=== PATIENT | female | born 1950 | race Hispanic/Latino ===

== ENCOUNTER 2017-12-27 19:30 | Emergency (ER) | payer MEDICARE ==
[~2017-12-27] VITALS: Ht 162.6 cm; Wt 92.0 kg
[~2017-12-27 19:30] MED LIST: DILTIAZEM120 MG PO; LEVOTHYROXIN125 MCG PO; LOSARTAN POT50 MG PO; TAM75CAP PO
[2017-12-27 20:19] LABS: URINE BILIRUBIN - DIPSTICK NEGATIVE (NEGATIVE); URINE BLOOD DIPSTICK SMALL (NEGATIVE); URINE COLOR YELLOW; URINE GLUCOSE - DIPSTICK NEGATIVE (NEGATIVE); URINE KETONE NEGATIVE (NEGATIVE); URINE LEUK ESTERASE TRACE (NEGATIVE); URINE NITRITE - DIPSTICK NEGATIVE (Negative); URINE PROTEIN - DIPSTICK NEGATIVE (NEG-TRACE); URINE SPECIFIC GRAVITY <=1.005; URINE UROBILINOGEN - DIPSTICK 0.2 E.U./dL (0.2)
[2017-12-27 20:24] LABS: URINE CLARITY CLEAR
[2017-12-27 20:30] LABS: URINE BACTERIA FEW hpf; URINE SQUAMOUS EPITHELIAL CELL FEW EPI/hpf (0-FEW)
[2017-12-27] MEDS ORDERED: PYRIDIUM200 MG PO (20:46)
[2017-12-27] MEDS ORDERED: MACRODANTIN100 MG PO (20:46)
[2017-12-27 21:10] VITALS: BP 180/90
== END 2017-12-27 21:10 | disposition home or self-care (01) ==
LOC: ED 19:30
PROVIDERS: Family Medicine
DX: N39.0 Urinary tract infection, site not specified (principal); R35.0 Frequency of micturition